=== PATIENT | female | born 1975 | race Caucasian/White ===

== ENCOUNTER 2017-12-15 15:00 | Outpatient (AMBR) | payer BC, SELFPAY ==
--- NOTE | 2017-12-09 15:22 | PT.OIERPT ---
PT OP Initial Eval Patient Information Visit Reasons: back pain Medical Diagnosis: Back Pain Treatment Dx #1: Back Pain Start of Care: 12/09/17 Date of Onset: 15 years ago Initial Assessment Subjective Pt is a 42 y/o female c/o chronic back pain (07/26) started many years ago. 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 Pt currently has difficulty with prolonged sitting, standing, lifting, chores, self care, and performing certain work duties. Objective T/S AROM: all motions are WNL L/S AROM: all motions are WNL with pain towards end range extension Scapula MMTs: 3/5 Hip PROM: all motions are WNL Hip MMTs: grossly 3/5 Palpation: TTP paraspinal muscle T4-T10 region; hypomobile T3-T10 facets Assessment Pt demonstrate mid and lower back pain with spinal mobility deficits leading to decline function and difficulty with ADLs. Pt will attempt physical therapy if pain persist Pt will be refer back to MD. Short Term and Manager Landscape Goals 1) Increase spinal mobility WFL in 6 wks to be able to perform work duties with less limitation 2) Decrease back pain to 3/10 in 6 wks to be able to perform chores 3) Increase thoracic core strength WFL in 6 wks to be able to perform lifting activities 4) Indep with HEP Treatment Plan 1) Manual Therapy 2) Therapeutic Activities 3) Therapeutic Exercises 4) Modalities (ice, heat, e-stim) Frequency and Duration 2 x wk for 6 wks Certification Dates: 12/09/17 to 03/11/18 Office Procedures PT Procedures PT Date of Service: 12/09/17 OP PT Eval Mod Complex 30 minutes: Yes
--- NOTE | 2017-12-09 15:28 | PTNOTE_ITS ---
PT OP Initial Eval Patient Information Visit Reasons: back pain Medical Diagnosis: Back Pain Treatment Dx #1: Back Pain Start of Care: 12/09/17 Date of Onset: 15 years ago Initial Assessment Subjective Pt is a 42 y/o female c/o chronic back pain (07/26) started many years ago. 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 Pt currently has difficulty with prolonged sitting, standing, lifting, chores, self care, and performing certain work duties. Objective T/S AROM: all motions are WNL L/S AROM: all motions are WNL with pain towards end range extension Scapula MMTs: 3/5 Hip PROM: all motions are WNL Hip MMTs: grossly 3/5 Palpation: TTP paraspinal muscle T4-T10 region; hypomobile T3-T10 facets Assessment Pt demonstrate mid and lower back pain with spinal mobility deficits leading to decline function and difficulty with ADLs. Pt will attempt physical therapy if pain persist Pt will be refer back to MD. Short Term and Salvage Worker Goals 1) Increase spinal mobility WFL in 6 wks to be able to perform work duties with less limitation 2) Decrease back pain to 3/10 in 6 wks to be able to perform chores 3) Increase thoracic core strength WFL in 6 wks to be able to perform lifting activities 4) Indep with HEP Treatment Plan 1) Manual Therapy 2) Therapeutic Activities 3) Therapeutic Exercises 4) Modalities (ice, heat, e-stim) Frequency and Duration 2 x wk for 6 wks Certification Dates: 12/09/17 to 03/11/18 Office Procedures PT Procedures PT Date of Service: 12/09/17 OP PT Eval Mod Complex 30 minutes: Yes
--- NOTE | 2017-12-11 15:02 | PT.ODAYNRPT ---
PT Outpatient Daily Note Date of Service: December 11, 2017 OP Daily Note Visit Reasons: back pain Outpatient Physical Therapy Treatment Date: 12/11/17 Subjective: pt had came from work and was barely getting back pain. Objective: see flow sheet. Assessment: pt tolerated supine on HP throughout ther ex. limited mobility with LTR due to fear of dropping the SB so reassured pt to hold on tight to stretch the side planks. took pt a few reps to get the the contraction of the mid back going during rows. towards the end of the set she was able to understand a little bit better but still needs practice. LE exercises for the hip and low back using thera band, pt was able to demonstrate good posture with no compensation nor complaints. gave pt thera band for home use. Plan: continue POC per PT. Length of Time (minutes) of Treatment: 30 Minutes Office Procedures PT Procedures PT Date of Service: 12/11/17 PT Procedures PT Date of Service: 12/09/17 OP PT Eval Mod Complex 30 minutes: Yes
--- NOTE | 2017-12-15 15:35 | PTNOTE_ITS ---
PT Outpatient Daily Note Date of Service: December 15, 2017 OP Daily Note Visit Reasons: back pain Outpatient Physical Therapy Treatment Date: 12/15/17 Subjective: Pt's back feels the same. Pt mention that she still has the mid back pain. Objective: Please see flow chart for list of ther ex performed Assessment: decrease paraspinal muscle tone after stm at T4-T10 region. Pt had a small audible with joint pain. difficulty with wall jon due to t/s hypomobile improved after a few reps Plan: Continue with PT Length of Time (minutes) of Treatment: 30 Minutes Office Procedures PT Procedures PT Date of Service: 12/11/17 Therapeutic Exercise 30 minutes: Yes PT Procedures PT Date of Service: 12/15/17 Therapeutic Exercise 15 minutes: Yes Manual Charter Coach Driver 15 minutes: Yes PT Procedures PT Date of Service: 12/09/17 OP PT Eval Mod Complex 30 minutes: Yes
== END 2017-12-16 23:59 | disposition home or self-care (01) ==
PROVIDERS: PCP Family Medicine; Referring Provider Family Medicine; Visit Provider Family Medicine
DX: M54.9 Dorsalgia, unspecified (principal); G89.29 Other chronic pain
CPT/HCPCS: 97110; 97140; 97162

== ENCOUNTER 2018-01-13 15:00 | Outpatient (AMBR) | payer BC, SELFPAY ==
--- NOTE | 2017-12-17 17:37 | PT.ODAYNRPT ---
PT Outpatient Daily Note Date of Service: December 17, 2017 OP Daily Note Visit Reasons: back pain Outpatient Physical Therapy Treatment Date: 12/17/17 Subjective: pt reported having a bad busy day at work which increases stress levels and tension. Objective: see flow sheet. Assessment: added exercises for mid back activation using thera band. palpated fair activation but she seemed to have muscle tightness. pt does have kyphosis posture in sitting position. cued pt to sit up tall to help with straightening her back. advised pt to continue the new exercises at home. Plan: continue POC per PT. Length of Time (minutes) of Treatment: 30 Minutes Office Procedures PT Procedures PT Date of Service: 12/17/17 Therapeutic Exercise 15 minutes: Yes Manual Piano Player 15 minutes: Yes
--- NOTE | 2017-12-17 17:42 | PTNOTE_ITS ---
Office Procedure Documentation entered by Francesco Ames PT 12/18/17 09:45: PT Procedures PT Date of Service: 12/17/17 Therapeutic Exercise 15 minutes: Yes Manual Terrazzo Worker Helper 15 minutes: Yes Original Note: PT Outpatient Daily Note Date of Service: December 17, 2017 OP Daily Note Visit Reasons: back pain Outpatient Physical Therapy Treatment Date: 12/17/17 Subjective: pt reported having a bad busy day at work which increases stress levels and tension. Objective: see flow sheet. Assessment: added exercises for mid back activation using thera band. palpated fair activation but she seemed to have muscle tightness. pt does have kyphosis posture in sitting position. cued pt to sit up tall to help with straightening her back. advised pt to continue the new exercises at home. Plan: continue POC per PT. Length of Time (minutes) of Treatment: 30 Minutes Office Procedures PT Procedures PT Date of Service: 12/17/17 Therapeutic Exercise 15 minutes: Yes Manual Terrazzo Worker Helper 15 minutes: Yes
--- NOTE | 2017-12-22 15:31 | PT.ODAYNRPT ---
PT Outpatient Daily Note Date of Service: December 22, 2017 OP Daily Note Visit Reasons: back pain Outpatient Physical Therapy Treatment Date: 12/22/17 Subjective: Pt's mid back feels better. Pt was able to do a little of her yardwork today Objective: Please see flow chart for list of ther ex performed Assessment: improve t/s mobility; less tension in paraspinal musculatures. difficulty with foam roll extension due to slipping foam roll Plan: Continue with PT Length of Time (minutes) of Treatment: 30 Minutes Office Procedures PT Procedures PT Date of Service: 12/22/17 Therapeutic Exercise 15 minutes: Yes Manual Product Support Manager 15 minutes: Yes PT Procedures PT Date of Service: 12/17/17 Therapeutic Exercise 15 minutes: Yes Manual Product Support Manager 15 minutes: Yes
--- NOTE | 2017-12-31 16:53 | PT.ODAYNRPT ---
PT Outpatient Daily Note Date of Service: December 31, 2017 OP Daily Note Visit Reasons: back pain Outpatient Physical Therapy Treatment Date: 12/31/17 Subjective: pt reports her back was increased in pain due to work but has been compliance with HEP. Objective: see flow sheet. Assessment: added new exercises to strengthen the mid back /shoulder blades using the weighted ball and thera bands. pt did have difficulty with activating the SA muscle but understands it will take practice. pt tends to protract the neck during OH exercise and cued pt to relax the neck. Plan: continue POC per PT. Length of Time (minutes) of Treatment: 30 Minutes Office Procedures PT Procedures PT Date of Service: 12/22/17 Therapeutic Exercise 15 minutes: Yes Manual Family Practice Physician Assistant 15 minutes: Yes PT Procedures PT Date of Service: 12/31/17 Therapeutic Exercise 30 minutes: Yes PT Procedures PT Date of Service: 12/17/17 Therapeutic Exercise 15 minutes: Yes Manual Family Practice Physician Assistant 15 minutes: Yes
--- NOTE | 2018-01-05 15:59 | PTNOTE_ITS ---
PT Outpatient Daily Note Date of Service: January 05, 2018 OP Daily Note Visit Reasons: back pain Outpatient Physical Therapy Treatment Date: 01/05/18 Subjective: Pt's mid back is feeling much better. 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 Objective: Please see flow chart for list of ther ex performed Assessment: minimal pain today; improved T/S mobility allowing her to perform wall jon with no compensation Plan: Continue with PT Length of Time (minutes) of Treatment: 30 Minutes Office Procedures PT Procedures PT Date of Service: 12/22/17 Therapeutic Exercise 15 minutes: Yes Manual Airport Duty Manager 15 minutes: Yes PT Procedures PT Date of Service: 12/31/17 Therapeutic Exercise 30 minutes: Yes PT Procedures PT Date of Service: 01/05/18 Therapeutic Exercise 15 minutes: Yes Manual Airport Duty Manager 15 minutes: Yes PT Procedures PT Date of Service: 12/17/17 Therapeutic Exercise 15 minutes: Yes Manual Airport Duty Manager 15 minutes: Yes
--- NOTE | 2018-01-13 17:17 | PTNOTE_ITS ---
PT OP Progress/Discharge Note Date of Service: January 13, 2018 Progress Note/DC Note Progress Note/Discharge Note: DC Note Patient Information Visit Reasons: back pain Medical Diagnosis: Back Pain Treatment Dx #1: Back Pain Service Continue Service or Discharge: Discharge Discharge Date: 01/13/18 Status Subjective: Pt mention that her mid back pain is much better since starting physical therapy. Pt still notice ache intermittently which now is more manageable. Pt can sit, stand, and walk longer with less pain. 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 Pt feels comfortable being release from PT with exercises to continue at home. Objective: T/S and L/S AROM: all motions are WNL Scapula MMTs: grossly 3+/5 Hip PROM: all motions are WNL Hip MMTs: grossly 3+/5 Palpation: decrease paraspinal tone at T4-T0 region Assessment: Pt's spinal mobility and overall thoracic core strength has improved since starting physical therapy allowing her to resume work duties, ADLs, chores, and recreational activities with less limitation. Pt will no longer benefit from physical therapy due to meeting all set goals. Pt was instructed on HEP last session and educated to continue exercises to maintain overall mobility. Pt performed all exercises safely, thank you for your referrals. Plan: D/C home with HEP and follow up with MD [facility] Office Procedures PT Procedures PT Date of Service: 12/22/17 Therapeutic Exercise 15 minutes: Yes Manual Transfer Table Operator Helper 15 minutes: Yes PT Procedures PT Date of Service: 12/31/17 Therapeutic Exercise 30 minutes: Yes PT Procedures PT Date of Service: 01/05/18 Therapeutic Exercise 15 minutes: Yes Manual Transfer Table Operator Helper 15 minutes: Yes PT Procedures PT Date of Service: 01/13/18 Therapeutic Exercise 15 minutes: Yes Manual Transfer Table Operator Helper 15 minutes: Yes PT Procedures PT Date of Service: 12/17/17 Therapeutic Exercise 15 minutes: Yes Manual Transfer Table Operator Helper 15 minutes: Yes
== END 2018-01-15 23:59 | disposition home or self-care (01) ==
PROVIDERS: PCP Family Medicine; Referring Provider Family Medicine
DX: M54.6 Pain in thoracic spine (principal)
CPT/HCPCS: 97110; 97140